=== PATIENT | male | born 1955 | race Caucasian/White ===

== ENCOUNTER → 2018-02-23 | Outpatient (CLI) | payer MEDICARE ==
[~2018-02-23] MED LIST: DOXY100T PO; OXYC-360 PO; SULF1TAB47 PO
[2018-02-23 11:59] LABS: AUTOMATED NEUTROPHIL # 4.6 TH/MM3 (1.8-7.7); BASOPHIL # 0.1 TH/MM3 (0-0.2); BASOPHIL % 0.8 % (0.0-2.0); EOSINOPHIL # 0.1 TH/MM3 (0-0.4); EOSINOPHIL % 1.5 % (0.0-4.0); HEMATOCRIT 38.5 % (39.0-51.0); HEMOGLOBIN 12.9 GM/DL (13.0-17.0); LYMPH % 25.2 % (9.0-44.0); LYMPHOCYTE # 1.9 TH/MM3 (1.0-4.8); MEAN CELL VOLUME 90.1 FL (80.0-100.0); MEAN CORPUSCULAR HEMOGLOBIN 30.3 PG (27.0-34.0); MEAN CORPUSCULAR HGB CONC 33.6 % (32.0-36.0); MEAN PLATELET VOLUME 7.9 FL (7.0-11.0); MONO % 9.6 % (0.0-8.0); MONOCYTE # 0.7 TH/MM3 (0-0.9); NEUT % 62.9 % (16.0-70.0); PLATELET COUNT 286 TH/MM3 (150-450); RED BLOOD COUNT 4.28 MIL/MM3 (4.50-5.90); RED CELL DISTRIBUTION WIDTH 13.9 % (11.6-17.2); WHITE BLOOD COUNT 7.4 TH/MM3 (4.0-11.0)
--- NOTE | 2018-02-23 13:35 | EKG ---
Date Performed: 02/23/2018 Time Performed: 12:01:44 PTAGE: 63 years EKG: Sinus rhythm with PVC(s) Poor R wave progression - probable normal variant Borderline ECG NO PREVIOUS TRACING DOCTOR: Rey Ivory Interpretating Date/Time 02/23/2018 13:34:36
== END ==
LOC: CLAB 09:52
PROVIDERS: ATTEND Surgery
DX: K42.9 Umbilical hernia without obstruction or gangrene (principal); R94.31 Abnormal electrocardiogram [ECG] [EKG]
CPT/HCPCS: 36415; 85025; 93005

== ENCOUNTER → 2018-03-07 | Day surgery (SDC) | payer MEDICARE ==
[~2018-03-07] VITALS: Ht 175.3 cm; Wt 79.5 kg
[~2018-03-07] MED LIST changes: +ACETAMINOPHEN 1000 MG/100 ML 100 ML IV SCH; +BUPIVACAINE LIPOSOME PF 1.3% 20 ML VIAL ONE; +BUPIVACAINE/EPINEPHRINE 0.5% PF 30 ML VIAL ONE; +CHLORHEXIDINE GLUCONATE 2 % 1 PACK (2 CLOTHS) TOPICAL PRN; -DOXY100T PO; +LACTATED RINGER'S 1000 ML IV PRN; +LIDOCAINE 1%/EPINEPHrine 1:100,000 SOLN 30 ML VIAL ONE; +LISI10TA3 PO; +METOPROLOL TARTRATE 25 MG TAB PO PRN; +MORPHINE SULFATE 4 MG/ML INJ ONE; -OXYC-360 PO; +POVIDONE IODINE 5% (ANTISEPSIS KIT) 4 APPLICATIONS EACH NARE PRN; +SODIUM BICARBONATE 8.4% INJ 0 ML ONE; +SODIUM CHLOR 0.9% 250 ML INJ 500 ML ONE; +SODIUM CHLORID 0.9% 500 ML IV PRN; -SULF1TAB47 PO; +VANCOMYCIN 500 MG VIAL ONE; +ceFAZolin 2 GM PREMIX 50 ML IV SCH; +ceFAZolin INJ 1,000 MG VIAL ONE; +oxyCODONE/ACETAMINOPHEN 5 MG/325 MG TAB ONE
[2018-03-07 09:38] VITALS: PULSE 77
--- NOTE | 2018-03-07 10:22 | MP ---
cc: Marquise Bond MD DATE OF OPERATION: 03/07/2018 PREOPERATIVE DIAGNOSIS: Umbilical hernia. POSTOPERATIVE DIAGNOSIS: Umbilical hernia. PROCEDURE PERFORMED: Excision of umbilical skin and primary repair of umbilical hernia. SURGEON: Marquise Bond MD PROCEDURE: Estefani Clarke, MS3 ANESTHESIA: General endotracheal. OPERATIVE FINDINGS: The patient was found to have approximately 4 to 4.5 cm umbilical hernia with a large amount of omentum within the hernia sac with attachments to the hernia sac as well. No other abnormalities were noted. OPERATIVE PROCEDURE: The patient was brought to the operating room and after satisfactory general endotracheal anesthesia was obtained, the abdomen was prepped and draped in the usual sterile fashion. The umbilical skin was elliptically excised and a large portion of it was sent to pathology. The omentum was then taken down from its peritoneal attachments within the hernia sac and reduced completely within the peritoneal cavity. The fascia was then circumferentially cleared of adhesions to allow a tension-free closure, which was accomplished with interrupted #1 Prolene sutures. The umbilical skin in its mid portion was attached back to the fascia with 3-0 Vicryl sutures. The skin was then closed with interrupted 4-0 PDS subcuticular stitches. A compression dressing was placed after placing Steri-Strips. The patient was then awakened and taken from the operating room, in satisfactory condition, having tolerated the procedure without problem. ESTIMATED BLOOD LOSS: Less than 15 mL. COUNTS: The instrument, sponge, needle counts were reported as being correct x 2 at the end of the procedure. Marquise Bond MD [facility] , 09:52 AM , 10:21 AM
[2018-03-07 10:45] VITALS: BP 103/66; PULSE 70; RESP 14; TEMP 97.6; O2SAT 93
== END | disposition home or self-care (01) ==
LOC: PHSDC 06:18
PROVIDERS: ATTEND Surgery
DX: K42.9 Umbilical hernia without obstruction or gangrene (principal); I10 Essential (primary) hypertension
CPT/HCPCS: 00830; 49585; 76937; 88302; C9290; J0131; J0690; J2270; J3010; J7050; J7120; 88304; J3370